=== PATIENT | female | born 1980 | race Caucasian/White ===

== ENCOUNTER → 2024-07-18 | Outpatient (CLI) | payer OTHER, SELFPAY ==
[2024-07-18 09:09] LABS: Collection Type, Urine Clean Catch; Squamous Epithelial Cell,Urine 0 /hpf (0-5)
[2024-07-18 11:40] LABS: Basophils % (Auto) 0 % (0-2.5); Eosinophils # (Auto) 0.1 Thou/mm3 (0.0-0.5); Eosinophils % (Auto) 2 % (0-10); Hematocrit 39.8 % (36.0-46.0); Hemoglobin 13.7 g/dL (12.0-16.0); Immature Granulocytes % (Auto) 0 % (0-0); Immature Granulocytes Auto 0.01 Thou/mm3 (0.00-0.00); Lymphocytes # (Auto) 3.1 Thou/mm3 (1.0-4.8); Lymphocytes % (Auto) 40 % (10-50); Mean Corpuscular HGB Conc 34.4 g/dl (31.0-37.0); Mean Corpuscular Hemoglobin 27.5 pg (25.0-35.0); Mean Corpuscular Volume 80 fL (80-100); Monocytes # (Auto) 0.5 Thou/mm3 (0.0-0.8); Monocytes % (Auto) 6 % (0-12); Neutrophils # (Auto) 3.9 Thou/mm3 (1.8-7.7); Neutrophils % (Auto) 51 % (37-80); Nucleated Red Blood Cell % 0 /100 WBC (0); Platelet Count 389 Thou/mm3 (140-440); RDW Standard Deviation 37.2 fL (36.4-46.3); Red Blood Count 4.99 Miln/mm3 (4.00-5.20); White Blood Count 7.7 Thou/mm3 (3.6-11.0)
[2024-07-18 11:46] LABS: Bilirubin,Urine Negative (Negative); Blood,Urine Negative (Negative); Clarity,Urine Clear (Clear/Hazy); Color,Urine Colorless (Lt Yel-Yel); Culture Indicated,Urine Not Indicated; Glucose, Urine Negative (Negative); Ketones,Urine Negative (Negative); Leukocyte Esterase,Urine Negative (Negative); Nitrite,Urine Negative (Negative); Protein,Urine Negative (Neg - Trace); RBC,Urine 1 /hpf (0-3); Urobilinogen,Urine Negative mg/dL (0.0-1.0); WBC,Urine < 1 /hpf (0-5)
[2024-07-18 11:59] LABS: Vitamin B12 384 pg/mL (211-911); Vitamin D 25 Hydroxy Total 20.6 ng/mL (7.3-40.2)
[2024-07-18 12:09] LABS: Alanine Aminotransferase 18 U/L (10-49); Albumin, Serum 5.1 gm/dL (3.5-5.0); Alkaline Phosphatase 85 U/L (46-116); Anion Gap 8 (7-16); Aspartate Amino Transferase 24 U/L (0-34); BUN/Creatinine Ratio 21 Ratio (12-20); Blood Urea Nitrogen 15 mg/dL (9-23); Calcium 9.9 mg/dL (8.3-10.6); Calcium (Corrected) 9.9 mg/dL (8.5-10.1); Carbon Dioxide 26.3 mMol/L (20.0-31.0); Chloride 108 mMol/L (98-107); Creatinine (Component) 0.7 mg/dL (0.6-1.3); Globulin 2.5 gm/dL (2.3-3.5); Glucose 98 mg/dL (74-106); Osmolality,Calculated 283 (275-295); Potassium 4.4 mMol/L (3.4-5.1); Sodium 142 mMol/L (136-145); Thyroid Stimulating Hormone 1.67 uIU/mL (0.55-4.78); Total Protein 7.6 gm/dL (5.7-8.2); eGFR > 60 See Note
[2024-07-18 12:23] LABS: Cardiac Risk Estimate 3.7 RATIO (3.7-5.6); Cholesterol 179 mg/dL (132-200); HDL Cholesterol 49 mg/dL (40-60); LDL Cholesterol,Calculated 103 mg/dL (0-130); Triglycerides 137 mg/dL (30-150)
== END | disposition home or self-care (01) ==
LOC: SLAB 08:59
PROVIDERS: PCP Physician Assistant; Referring Provider Physician Assistant; Visit Provider Physician Assistant
DX: Z00.00 Encounter for general adult medical examination without abnormal findings (principal); E78.5 Hyperlipidemia, unspecified; E55.9 Vitamin D deficiency, unspecified
CPT/HCPCS: 36415; 80053; 80061; 81001; 82306; 82607; 84443; 85025

== ENCOUNTER → 2025-01-29 | Outpatient (CLI) | payer OTHER, SELFPAY ==
--- NOTE | 2025-01-29 15:28 | XR_ITS ---
EXAMINATION: Ankle, left 3 views . Technique: Ankle AP, oblique, lateral 3 views Date and time of exam: January 29, 2011 2025, 1558 hours FINDINGS: No fracture or dislocation No foreign body IMPRESSION: No fracture or dislocation 5 mm plantar bony calcaneal spur
== END | disposition home or self-care (01) ==
PROVIDERS: PCP Physician Assistant; Referring Provider Physician Assistant; Visit Provider Physician Assistant
DX: M77.32 Calcaneal spur, left foot (principal)
CPT/HCPCS: 73610

== ENCOUNTER 2025-02-18 13:35 | Inpatient (IN) | payer OTHER, SELFPAY ==
[2025-02-18 13:45] VITALS: BP 122/80; PULSE 88; RESP 22; TEMP 36.7; O2SAT 98; BMI 28.7
--- NOTE | 2025-02-18 13:49 | XR_ITS ---
Examination: CT abdomen and pelvis without contrast. Coronal 3-D reconstructions. Sagittal 2-D reconstructions. Date and time of exam:February 18, 2025, 1526 hours INDICATIONS: Nausea vomiting generalized abdominal pain today CTDI: vol (mGy): 9.22 DLP: (mGycm): 534 Technique: Axial images of the abdomen have been obtained, 3 mm slice thickness Intravenous contrast material has not been administered. Low dose protocols were performed. One or more of the following dose reduction techniques were used; automated exposure control, adjustment of the mA and/or KV according to patient size, use of iterative reconstruction technique. Findings: 4 mm lateral right breast lesion image 13 Multiple hepatic lesions, the largest is in the left lobe anteriorly 5.2 cm, the largest in the right lobe of the liver 3.0 cm No biliary tract dilatation No gallstones No pancreatic or adrenal mass Spleen is not enlarged Multiple fluid distended small bowel loops Normal appendix 8mm fat-containing umbilical hernia Anteverted uterus Urinary bladder intact Mild osteopenia IMPRESSION: 4 mm nodule lateral right breast, recommend diagnostic mammography, bilateral breast sonography follow-up Multiple hepatic lesions, consider multiple hepatic metastases Small bowel obstruction, high-grade, consider Gastrografin small bowel series follow-up
--- NOTE | 2025-02-18 13:50 | PD.EDRME ---
Rapid Medical Screening Exam RME Arrival date/time: 02/18/25 13:35 44-year-old female with no known medical history presents to the emergency room with a chief complaint of 10 out of 10 diffuse abdominal pain that radiates from the epigastric area down to the lower abdomen, and vomiting x 2 days I have greeted and performed a focused initial assessment of this patient. A comprehensive ED assessment and evaluation of the patient, analysis of all test results, and completion of the medical decision making process will be conducted by additional ED providers. Chief Complaint: Abdominal Pain Vital signs: Vital Signs Temperature 98.1 F 02/18/25 13:45 Pulse Rate 88 02/18/25 13:45 Respiratory Rate 22 H 02/18/25 13:45 Blood Pressure 122/80 02/18/25 13:45 Pulse Oximetry (%) 98 02/18/25 13:45 Oxygen Delivery Method Room Air 02/18/25 13:45 Vital signs reviewed by provider: Yes
[2025-02-18 14:17] LABS: Basophils # (Auto) 0.0 Thou/mm3 (0.0-0.2); Basophils % (Auto) 0 % (0-2.5); Eosinophils # (Auto) 0.0 Thou/mm3 (0.0-0.5); Eosinophils % (Auto) 0 % (0-10); Hematocrit 42.8 % (36.0-46.0); Hemoglobin 14.3 g/dL (12.0-16.0); Immature Granulocytes Auto 0.06 Thou/mm3 (0.00-0.00); Lymphocytes # (Auto) 1.2 Thou/mm3 (1.0-4.8); Lymphocytes % (Auto) 8 % (10-50); Mean Corpuscular HGB Conc 33.4 g/dl (31.0-37.0); Mean Corpuscular Hemoglobin 26.9 pg (25.0-35.0); Mean Corpuscular Volume 81 fL (80-100); Monocytes # (Auto) 0.6 Thou/mm3 (0.0-0.8); Monocytes % (Auto) 4 % (0-12); Neutrophils # (Auto) 13.2 Thou/mm3 (1.8-7.7); Neutrophils % (Auto) 88 % (37-80); Nucleated Red Blood Cell # 0.00 Thou/mm3 (0.00-0.00); Nucleated Red Blood Cell % 0 /100 WBC (0); Platelet Count 379 Thou/mm3 (140-440); RDW Standard Deviation 35.8 fL (36.4-46.3); Red Blood Count 5.31 Miln/mm3 (4.00-5.20); White Blood Count 15.1 Thou/mm3 (3.6-11.0)
[2025-02-18 14:32] LABS: Collection Type, Urine Clean Catch
[2025-02-18 14:35] LABS: Alanine Aminotransferase 20 U/L (10-49); Albumin, Serum 5.2 gm/dL (3.5-5.0); Albumin/Globulin Ratio 2.1 (1.2-2.2); Alkaline Phosphatase 89 U/L (46-116); Anion Gap 12 (7-16); Aspartate Amino Transferase 22 U/L (0-34); BUN/Creatinine Ratio 14 Ratio (12-20); Bilirubin,Total 1.2 mg/dL (0.3-1.2); Blood Urea Nitrogen 10 mg/dL (9-23); Calcium 10.4 mg/dL (8.3-10.6); Calcium (Corrected) 10.4 mg/dL (8.5-10.1); Carbon Dioxide 22.6 mMol/L (20.0-31.0); Chloride 105 mMol/L (98-107); Creatinine (Component) 0.7 mg/dL (0.6-1.3); Estimated Creatinine Clearance 108.7 mL/min (>60); Globulin 2.5 gm/dL (2.3-3.5); Glucose 155 mg/dL (74-106); Lipase 29 U/L (12-53); Osmolality,Calculated 281 (275-295); Potassium 4.4 mMol/L (3.4-5.1); Sodium 140 mMol/L (136-145); Total Protein 7.7 gm/dL (5.7-8.2); eGFR > 60 See Note
[2025-02-18] MEDS: ONDANSETRON INJ 2 MG/ML INJ 2 ML 4 MG IM (14:38)
[2025-02-18 14:50] LABS: HCG Qualitative,Urine Negative
[2025-02-18 15:02] LABS: Bacteria,Urine Rare; Bilirubin,Urine Negative (Negative); Blood,Urine 2+ (Negative); Color,Urine Yellow (Lt Yel-Yel); Glucose, Urine Negative (Negative); Ketones,Urine 4+ (Negative); Leukocyte Esterase,Urine Negative (Negative); Nitrite,Urine Negative (Negative); PH,Urine 5.5 (5.0-7.0); Protein,Urine Trace (Neg - Trace); RBC,Urine 2 /hpf (0-3); Specific Gravity,Urine 1.027 (1.001-1.035); Squamous Epithelial Cell,Urine 6 /hpf (0-5); Urobilinogen,Urine Negative mg/dL (0.0-1.0); WBC,Urine 1 /hpf (0-5)
[2025-02-18 15:11] LABS: Clarity,Urine Hazy (Clear/Hazy)
[2025-02-18] MEDS: HYDROcodone/APAP 5/325 TABLET 1 TAB PO (15:30)
--- NOTE | 2025-02-18 16:48 | PD.EDABDPN ---
ED Abdominal Pain RME/HPI General Chief Complaint: Abdominal Pain Stated complaint: ABD PAIN, VOMITING SINCE 3:30AM Time seen by provider: 02/18/25 15:20 Arrival date/time: 02/18/25 13:35 RME / HPI RME / HPI narrative: 02/18/25 13:35 44-year-old female with no known medical history presents to the emergency room with a chief complaint of 10 out of 10 diffuse abdominal pain that radiates from the epigastric area down to the lower abdomen, and vomiting x 2 days I have greeted and performed a focused initial assessment of this patient. A comprehensive ED assessment and evaluation of the patient, analysis of all test results, and completion of the medical decision making process will be conducted by additional ED providers. DR. YU MAIN ED EVALUATION 44 year old female with no stated medical history presents to the ED with abdominal pain that began at 03:30 AM today. She describes the pain as spasms or contractions, localized to the epigastric and central abdomen. Pain is accompanied by nausea and multiple episodes of vomiting. She has taken simethicone without relief. Patient reports some belching earlier today and notes she has not passed any gas. She denies any prior history of similar pain or presentation. Denies fevers, chills, chest pain, cough, shortness of breath, diarrhea, or urinary symptoms. Related Data Allergies Allergy/AdvReac Type Severity Reaction Status Date / Time No Known Allergies Allergy Unknown Verified 02/18/25 13:38 Review of Systems Review of Systems Systems Reviewed: All systems reviewed, normal except as documented Past Medical History Surgical History SURGICAL: Positive Section Social History SMOKING STATUS: Never smoker ED Exam Narrative Physical exam: Constitutional: Awake, alert, nontoxic, no acute distress HEENT: NC, AT, EOMI Neck: Supple CV: RRR, no m/r/g Lungs: CTAB, no w/r/r, no respiratory distress. Abd: Soft, tenderness to mid abdomen, no rebound, no guarding, no HSM noted to palpation Extremities: No deformities, no edema noted Neuro: AAOx3, CN 2-12 GIBL, no acute neuro deficit noted. Skin: Warm, dry, intact Course Course Course Narrative: 1700h: Spoke with Dr. Ortez regarding patient's presentation and CT findings. Recommends NG tube placement and small bowel series with admission. Spoke with team B resident for admission. Accepted Quality Measures none Orders Category Date Time Status COVID-19 Screening Questionnaire NOW Care 02/18/25 17:02 Active Decision to Admit X1 Care 02/18/25 17:02 Completed Insert NG / OG tube NOW Care 02/18/25 17:[address] abdomen pelvis wo con Stat Exams 02/18/25 13:49 Completed CBC Stat Lab 02/18/25 13:57 Completed CMP [Comprehensive Metabolic Panel] Stat Lab 02/18/25 13:57 Completed HCG Qualitative,Urine Stat Lab 02/18/25 14:24 Completed Lipase Stat Lab 02/18/25 13:57 Completed UA [Urinalysis] Stat Lab 02/18/25 14:24 Completed Urine Culture Stat Lab 02/18/25 14:24 Received HYDROcodone*/APAP 5/325 [[place] 5/325] Med 02/18/25 13:49 Discontinued 1 tab PO X1 ONE Ondansetron Inj [Zofran Inj] Med 02/18/25 14:25 Discontinued 4 mg IM X1 ONE Ondansetron Odt [Zofran Odt] Med 02/18/25 13:51 Discontinued 4 mg PO X1 ONE Vital Signs Vital signs: Vital Signs Temperature 98.1 F 02/18/25 13:45 Pulse Rate 88 02/18/25 13:45 Respiratory Rate 22 H 02/18/25 13:45 Blood Pressure 122/80 02/18/25 13:45 Pulse Oximetry (%) 98 02/18/25 13:45 Oxygen Delivery Method Room Air 02/18/25 13:45 Pulse ox is 98% on room air which is adequate. Abdominal Pain MDM MDM Narrative MDM Narrative:: Genesis Selby am scribing for and in the presence of Dr. Yu. Patient data External records reviewed:: [facility] previous records Clinical information provided by:: patient Social determinants that could affect healthcare access:: none Patient has the following chronic illnesses:: None reported How is presenting disease/condition affected by chronic disease/condition?: no chronic disease Evaluation data The following diagnostics were reviewed and interpreted by me:: lab results and radiology exam(s) Lab and/or radiology exams considered but not ordered:: None Interpretation Summary: Ordering Physician: Tejas Salvador Date of Service: 02/18/25 Procedure(s): CT abdomen pelvis wo con Accession Number(s): [id number] cc: Tejas SalvadorP; Beni Enrique MD; Alexandra Burton PA-C~ Examination: CT abdomen and pelvis without contrast. Coronal 3-D reconstructions. Sagittal 2-D reconstructions. Date and time of exam:February 18, 2025, 1526 hours INDICATIONS: Nausea vomiting generalized abdominal pain today CTDI: vol (mGy): 9.22 DLP: (mGycm): 534 Technique: Axial images of the abdomen have been obtained, 3 mm slice thickness Intravenous contrast material has not been administered. Low dose protocols were performed. One or more of the following dose reduction techniques were used; automated exposure control, adjustment of the mA and/or KV according to patient size, use of iterative reconstruction technique. Findings: 4 mm lateral right breast lesion image 13 Multiple hepatic lesions, the largest is in the left lobe anteriorly 5.2 cm, the largest in the right lobe of the liver 3.0 cm No biliary tract dilatation No gallstones No pancreatic or adrenal mass Spleen is not enlarged Multiple fluid distended small bowel loops Normal appendix 8mm fat-containing umbilical hernia Anteverted uterus Urinary bladder intact Mild osteopenia IMPRESSION: 4 mm nodule lateral right breast, recommend diagnostic mammography, bilateral breast sonography follow-up Multiple hepatic lesions, consider multiple hepatic metastases Small bowel obstruction, high-grade, consider Gastrografin small bowel series follow-up Dictated By: Beni Enrique MD Signed By: <Electronically signed by Beni Enrique MD in OV> 02/18/25 1546 Medications / Prescriptions Medications or Prescriptions considered but not ordered:: None Medication administrations:: Medication Administration History Discontinued Medications Hydrocodone Bitart/Acetaminophen (Hydrocodone/Apap 5/325 Tablet) 1 tab PO X1 ONE Stop: 02/18/25 13:50 Last Admin: 02/18/25 15:30 Dose: 1 tab Documented By: KURTIS Ondansetron HCl (Ondansetron Odt 4 Mg Tabrap) 4 mg PO X1 ONE; Protocol Stop: 02/18/25 13:52 Last Admin: 02/18/25 16:10 Dose: Not Given Documented By: Non-Admin Reason: Cancelled by Provider Ondansetron HCl (Ondansetron Inj 2 Mg/Ml Inj 2 Ml) 4 mg IM X1 ONE; Protocol Stop: 02/18/25 14:26 Last Admin: 02/18/25 14:38 Dose: 4 mg Documented By: See above Consultations Consultation(s) initiated? (list below): Yes Consultation #1 (Physician, Specialty, Details): See course Diagnosis Differential diagnosis abdominal pain: abdominal pain, diverticulitis, gastroenteritis and small bowel obstruction Most likely diagnosis given after review of the tests above:: SBO Breast nodule Liver lesion Admission Indicated Admission indicated?: indicated Admission Request Was there a request for admission?: Yes Admission Attestation Admission request attestation: Discussed case with [] from Hospitalist service regarding admission. Discussed patients ED course, exam findings, labs, and radiology results. The Hospitalist [agrees,declines] to accept the patient for admission. Disposition Plan Disposition Plan: Admit Discharge Plan Plan Patient Disposition: Admit Acute Care w/in Hospital Prescriptions/Referrals Referrals: Alexandra Burton PA-C [Primary Care Provider] - In 1 week Problem List Clinical Impression: SBO (small bowel obstruction), Breast nodule, Lesion of liver Patient/Caregiver Discharge Instructions Print Language: Kinyarwanda Stand Alone Forms: Evette Award Info., Patient Portal Info Letter
[2025-02-18 17:00] VITALS: BP 128/80; PULSE 90; RESP 18; TEMP 36.9; O2SAT 99
--- NOTE | 2025-02-18 17:54 | XR_ITS ---
Examination: AP chest single view Technique one AP portable upright chest single view Date and time: February 18, 2025, 1820 hrs. Indications: Post orogastric tube placement Findings: No significant cardiac enlargement No pneumonia or pulmonary edema Orogastric tube coiled in stomach satisfactory position Impression: Orogastric tube coiled in the stomach satisfactory position
[2025-02-18] MEDS: MIDAZOLAM INJ 1 MG/ML VIAL 2 ML IVP (18:10)
[2025-02-18] MEDS: RINGERS LACTATED 1000 ML 1,000 ML 75 ML IV ×2 (18:38→21:16)
--- NOTE | 2025-02-18 19:20 | XR_ITS ---
Examination: Small bowel series AP abdomen 4 views Date and time: February 18, 2025, 2038 hrs. Indications: Abdominal pain and distention this week, small bowel obstruction on CT abdomen pelvis study today Technique And Findings: Patient received 120 cc Gastrografin with immediate 30 minute 1 2.5 hour delayed films obtained There are contrast distended small bowel loops, however contrast is present significantly in the entire colon on the 2.5 are delayed film Impression: Negative for complete small bowel obstruction, recommend 1 additional abdomen film at 6:00 AM
--- NOTE | 2025-02-18 19:20 | PD.RESHP ---
Documentation for date of: 02/18/25 HPI History of Present Illness Chief complaint: vomitings and abdominal pain History of present illness: A 44-year-old female with significant past medical history of endometriosis, breast cyst presented to the hospital with chief complaints of nausea, vomitings and abdominal pain since this morning. Patient reported that she woke up at 3 AM and started to have vomiting since then and continuously threw up. Denies hematemesis. Also reported that she developed abdominal pain which got worsened by evening for which she came to the ED for further evaluation. Reported that last bowel movement is yesterday. Denies previous history of constipation or similar complaints. Denies any other drug usage. ED course: - Vitals at the time of admission are stable - Labs done at the time of admission are significant for WBC 15.1, corrected calcium 10.4 - Urinalysis significant for ketones 4+, blood 2+, squamous epithelial cells 6 - CT abdomen/pelvis showed high-grade small bowel obstruction, multiple hepatic lesions with possible suspected hepatic metastasis, 4 mm nodule in the right lateral breast. - Patient is admitted in the hospital for small bowel obstruction Past medical history: Endometriosis, breast cyst diagnosed in May 2024 Past surgical history: 2 sections Social history: Denies smoking, alcohol, other illicit drug abuse Allergies: No specific allergen noted but uses Claritin as needed for allergy symptoms Review of Systems Review of Systems Systems Reviewed: All systems reviewed, normal except as documented Past Medical History Surgical History SURGICAL: Positive Section Social History SMOKING STATUS: Never smoker Exam Vital Signs Temp Pulse Resp BP Pulse Ox O2 Del Method 98.4 F 90 18 128/80 99 Room Air 02/18/25 17:02/18/25 17:02/18/25 17:02/18/25 17:02/18/25 17:02/18/25 17:00 Narrative Exam General: Awake. HEENT: Normocephalic, atraumatic, mucous membranes moist. Heart: Regular rate and rhythm, no murmurs. Lungs: Clear to auscultation with no wheezing or crackles. Abdomen: Soft, mildly distended, mild tenderness, decreased bowel sounds. ?No guarding or rebound tenderness. Neurologic: Alert and oriented x3, no gross neurological deficit, and patient able to move all 4 extremities. Extremities: No edema. Skin: No rash or ecchymoses. Results: Labs 02/18/25 13:57 02/18/25 13:57 Labs: Short CBC 02/18/25 Range/Units 13:57 WBC 15.1 H (3.6-11.0) Thou/mm3 Hgb 14.3 (12.0-16.0) g/dL Hct 42.8 (36.0-46.0) % Plt Count 379 (140-440) Thou/mm3 BMP 02/18/25 13:57 Sodium 140 Potassium 4.4 Chloride 105 Carbon Dioxide 22.6 BUN 10 Creatinine 0.7 Glucose 155 H Calcium 10.4 Liver Function 02/18/25 Range/Units 13:57 Total Bilirubin 1.2 (0.3-1.2) mg/dL AST 22 (0-34) U/L ALT 20 (10-49) U/L Alkaline Phosphatase 89 (46-116) U/L Albumin 5.2 H (3.5-5.0) gm/dL Urine 02/18/25 Range/Units 14:24 Urine Color Yellow (Lt Yel-Yel) Urine Clarity Hazy (Clear/Hazy) Urine pH 5.5 (5.0-7.0) Ur Specific [place] 1.027 (1.001-1.035) Urine Protein Trace (Neg - Trace) Urine Glucose (UA) Negative (Negative) Quality Measures Quality Measures none Medications Home Medications and Allergies Allergies Allergy/AdvReac Type Severity Reaction Status Date / Time No Known Allergies Allergy Unknown Verified 02/18/25 13:38 Visit Medications Lactated Ringer's (Lactated Ringers) 1,000 mls @ 75 mls/hr IV .[id number] [facility] Stop: 03/20/25 18:44 Last Admin: 02/18/25 18:38 Dose: 75 mls/hr Ondansetron HCl (Ondansetron Inj 2 Mg/Ml Inj 2 Ml) 4 mg IVP Q6H PRN; Protocol PRN Reason: NAUSEA OR VOMITING Stop: 03/20/25 18:31 Pantoprazole Sodium (Pantoprazole Inj 40 Mg Vial) 40 mg IVP QDAY [facility] Stop: 03/21/25 08:59 Discontinued Medications Hydrocodone Bitart/Acetaminophen (Hydrocodone/Apap 5/325 Tablet) 1 tab PO X1 ONE Stop: 02/18/25 13:50 Last Admin: 02/18/25 15:30 Dose: 1 tab Midazolam HCl (Midazolam Inj 1 Mg/Ml Vial 2 Ml) 1 mg IVP X1 ONE Stop: 02/18/25 17:58 Last Admin: 02/18/25 18:10 Dose: 1 mg Ondansetron HCl (Ondansetron Odt 4 Mg Tabrap) 4 mg PO X1 ONE; Protocol Stop: 02/18/25 13:52 Last Admin: 02/18/25 16:10 Dose: Not Given Ondansetron HCl (Ondansetron Inj 2 Mg/Ml Inj 2 Ml) 4 mg IM X1 ONE; Protocol Stop: 02/18/25 14:26 Last Admin: 02/18/25 14:38 Dose: 4 mg Assessment & Plan Plan 44-year-old female with significant past medical history of endometriosis, right breast cyst admitted for small bowel obstruction # Small bowel obstruction - Admitted with chief complaints of nausea, vomiting and abdominal pain since the morning of the day of admission - Had multiple episodes of vomiting but denies hematemesis - Denies fever, other associated symptoms - Vitals are stable - Labs are significant for WBC 15.1 - Abdomen/pelvis CT showed high-grade small bowel obstruction and multiple liver masses Plan - Consulted general surgeon, Dr. Ortez - NG tube was placed - Small bowel series was started - Will monitor for bowel movements - Started on maintenance fluids, LR at 75 mL/h - Ondansetron as needed # Leukocytosis - WBC count at the time of presentation is 15.1, likely reactive Plan - Will continue to monitor CBC - Will start antibiotics if needed # Multiple liver masses, incidental finding - Patient does not have hematemesis, melena, hematochezia - Denies any weight loss - Abdomen/pelvis CT done which showed incidental multiple liver masses suggestive of possible liver metastasis - Father had sarcoma and is on chemotherapy, alive, age 65 years Plan - Consulted smoking pipes cleaner, Dr. Damico - Will need biopsy/MRI with contrast to evaluate the liver lesions, will wait for Dr. Damico recommendations and proceed according to that # Breast nodule - Incidental finding - Patient reported that she had a mammogram in May 2024 and noted to have cyst in the right breast - Will recommend to follow-up with regular mammography Hospital Maintenance: Dispo: Medsurg DVT ppx: SCD GI ppx: Protonix Diet: NPO IV lines: Peripheral Code status: Full Patient plan of care was discussed with the attending physician, Dr. Ashtyn Saleh, PGY2
[2025-02-18 19:28] VITALS: BP 128/84; PULSE 83; RESP 17; O2SAT 98
[2025-02-18 19:39] VITALS: BP 121/96; PULSE 94; RESP 18; TEMP 37.4; O2SAT 97
--- NOTE | 2025-02-18 19:44 | PD.SURCONS ---
HPI Consult details Consult date: 02/18/25 Reason for consultation narrative: Small bowel obstruction History of present illness: 44-year-old female with history of and endometriosis presented to the emergency department with worsening abdominal pain, nausea and vomiting. Her symptoms started 3:00 in the morning and woke her up. She has had generalized abdominal pain with bloating, and had multiple episodes of nausea and vomiting. She denies having similar symptoms in the past with recent history of trauma. CT scan of abdomen pelvis was done without contrast that revealed dilated loops of small bowel suspicious for high-grade small bowel obstruction. CT scan also revealed possible multiple liver lesions, however the CT scan was done without the contrast. She was also noted to have a right breast nodule, patient states she has had mammogram earlier this year that revealed right breast cyst. She denies history of breast mass, nipple discharge or family history of breast cancer. Review of Systems Constitutional Constitutional: Denies chills and Denies fever(s) Cardiovascular Cardiovascular: Denies chest pain Respiratory Respiratory: Denies cough Gastrointestinal Gastrointestinal: Reports abdominal pain, Reports nausea and Reports vomiting Genitourinary Genitourinary: Denies difficulty voiding and Denies nipple discharge Integumentary/Breasts Skin/Breast: Denies breast mass, Denies breast skin changes and Denies nipple discharge Hematologic/Lymphatic Hematologic/Lymphatic: Denies easy bleeding and Denies easy bruising Past Medical History Surgical History OTHER SURGICAL HX: Social History SMOKING STATUS: Never smoker SUBSTANCE USE: does not use ALCOHOL: Never Meds Home Medications and Allergies Allergies Allergy/AdvReac Type Severity Reaction Status Date / Time No Known Allergies Allergy Unknown Verified 02/18/25 13:38 Exam Vital Signs Temp Pulse Resp BP Pulse Ox O2 Del Method 99.3 F 94 18 121/96 H 97 Room Air 02/18/25 19:39 02/18/25 19:39 02/18/25 19:39 02/18/25 19:39 02/18/25 19:39 02/18/25 19:39 Constitutional Constitutional: no acute distress Routine Abdominal Exam Comments: Abdomen is soft but distended. She has tenderness to deep palpation, no rebound tenderness or diffuse peritonitis at this time Results Results: Laboratory Laboratory results: results reviewed Results: Imaging CT scan - abdomen: report reviewed and image reviewed CT scan - pelvis: report reviewed and image reviewed Assessment & Plan Problem List (1) SBO (small bowel obstruction): Status: Acute (2) Breast nodule: Status: Acute Plan Agree with NG tube decompression. Will obtain small bowel series. Regarding her liver lesions she she will either need a CT scan with IV contrast or MRI for further evaluation. Breast nodule is likely the cyst that she had on mammogram, that can be managed as an outpatient.
[2025-02-18 19:46] LABS: Creatine Kinase 90 U/L (34-171)
[2025-02-18 20:20] LABS: Lactate (Lactic Acid) 1.3 mMol/L (0.4-2.0)
[2025-02-18 20:37] VITALS: BMI 28.8
[2025-02-18] MEDS: MORPHINE SULF INJ 4 MG/ML VIAL 2 MG IVP (21:16)
[2025-02-18] MEDS: ONDANSETRON INJ 2 MG/ML INJ 2 ML 4 MG IVP (21:16)
--- NOTE | 2025-02-18 22:08 | PD.IMCONS ---
HPI Data of Consult Requesting Physician: Niarj Chamorro DO Primary Care Provider: Alexandra Burton PA-C Consult Narrative Reason for consult: Pain abdomen, nausea vomiting, abnormal CTAP History of present illness: 44 years of female presented to the hospital with severe abdominal pain starting in the epigastric area down to the lower abdomen with multiple episodes of nausea vomiting CT scan of the abdomen pelvis done without contrast showed 4 mm right breast lesion which on earlier mammography this year was found to be a cyst High-grade small bowel obstruction as well as multiple hepatic lesions I have been consulted cc:: cc: Niraj Chamorro DO Review of Systems Review of Systems Systems Reviewed: All systems reviewed, normal except as documented Past Medical History Surgical History OTHER SURGICAL HX: As in the history present illness Meds Home Medications and Allergies Home Medications ?Medication ?Instructions ?Recorded ?Confirmed ?Type No Known Home Medications 02/18/25 02/18/25 History Allergies Allergy/AdvReac Type Severity Reaction Status Date / Time No Known Allergies Allergy Unknown Verified 02/18/25 13:38 Exam Vital Signs Temp Pulse Resp BP Pulse Ox O2 Del Method 99.3 F 94 18 121/96 H 97 Room Air 02/18/25 19:39 02/18/25 19:39 02/18/25 19:39 02/18/25 19:39 02/18/25 19:39 02/18/25 19:39 Constitutional Comments: Chronically ill-appearing and in distress Routine Respiratory Exam Comments: Normal to auscultation Routine Abdominal Exam Comments: Hypoactive bowel sounds distended Results Labs 02/18/25 13:57 02/18/25 13:57 Labs: Short CBC 02/18/25 Range/Units 13:57 WBC 15.1 H (3.6-11.0) Thou/mm3 Hgb 14.3 (12.0-16.0) g/dL Hct 42.8 (36.0-46.0) % Plt Count 379 (140-440) Thou/mm3 BMP 02/18/25 13:57 Sodium 140 Potassium 4.4 Chloride 105 Carbon Dioxide 22.6 BUN 10 Creatinine 0.7 Glucose 155 H Calcium 10.4 Cardiac Enzymes 02/18/25 Range/Units 13:57 Total Creatine Kinase 90 (34-171) U/L Liver Function 02/18/25 Range/Units 13:57 Total Bilirubin 1.2 (0.3-1.2) mg/dL AST 22 (0-34) U/L ALT 20 (10-49) U/L Alkaline Phosphatase 89 (46-116) U/L Albumin 5.2 H (3.5-5.0) gm/dL Urine 02/18/25 Range/Units 14:24 Urine Color Yellow (Lt Yel-Yel) Urine Clarity Hazy (Clear/Hazy) Urine pH 5.5 (5.0-7.0) Ur Specific [place] 1.027 (1.001-1.035) Urine Protein Trace (Neg - Trace) Urine Glucose (UA) Negative (Negative) Assessment and Plan Additional Assessment & Plan Additional Plan: # High-grade small bowel Plan NGT to intermittent suction Gastrografin small bowel follow-through Will follow the patient # Multiple hepatic lesions in the liver AFP CEA level CA 19?9 level CA125 level CA 15-3 level Once more stable Recommend MRI scan of the liver pre and postcontrast 4 phase # Right breast nodule versus cyst Recommend ultrasound right breast with a repeat right breast diagnostic mammogram Thank you very much for the opportunity to participate in care of this patient
[2025-02-18 22:51] LABS: AFP Non-Pregnant 1.80 ng/mL (<8.10); CA 125 10.0 U/mL (<30.2); CA 15-3 6.6 U/mL (<32.4); Carcinoembryonic Antigen 1.0 ng/mL (0.0-5.0)
[2025-02-19] VITALS: BP 120/79; PULSE 91; RESP 16; TEMP 36.3; O2SAT 98
[2025-02-19 04:00] VITALS: BP 118/85; PULSE 82; RESP 16; TEMP 36.9; O2SAT 98
[2025-02-19] MEDS: ONDANSETRON INJ 2 MG/ML INJ 2 ML 4 MG IVP (04:10)
[2025-02-19] MEDS: MORPHINE SULF INJ 4 MG/ML VIAL 2 MG IVP (04:29)
[2025-02-19 05:10] LABS: Basophils # (Auto) 0.0 Thou/mm3 (0.0-0.2); Basophils % (Auto) 0 % (0-2.5); Eosinophils # (Auto) 0.0 Thou/mm3 (0.0-0.5); Eosinophils % (Auto) 0 % (0-10); Hematocrit 37.1 % (36.0-46.0); Hemoglobin 12.4 g/dL (12.0-16.0); Immature Granulocytes Auto 0.03 Thou/mm3 (0.00-0.00); Lymphocytes # (Auto) 2.7 Thou/mm3 (1.0-4.8); Lymphocytes % (Auto) 29 % (10-50); Mean Corpuscular HGB Conc 33.4 g/dl (31.0-37.0); Mean Corpuscular Hemoglobin 27.0 pg (25.0-35.0); Mean Corpuscular Volume 81 fL (80-100); Monocytes # (Auto) 1.1 Thou/mm3 (0.0-0.8); Monocytes % (Auto) 12 % (0-12); Neutrophils # (Auto) 5.6 Thou/mm3 (1.8-7.7); Neutrophils % (Auto) 59 % (37-80); Nucleated Red Blood Cell # 0.00 Thou/mm3 (0.00-0.00); Nucleated Red Blood Cell % 0 /100 WBC (0); Platelet Count 358 Thou/mm3 (140-440); RDW Standard Deviation 37.0 fL (36.4-46.3); Red Blood Count 4.60 Miln/mm3 (4.00-5.20); White Blood Count 9.5 Thou/mm3 (3.6-11.0)
[2025-02-19 05:53] LABS: Glucose Estimated Average 103 mg/dL (80-131); Hemoglobin A1C 5.2 % Hgb (4.8-6.0)
--- NOTE | 2025-02-19 06:00 | XR_ITS ---
Examination: Abdomen AP single view Technique: AP portable supine abdomen, single view Exam date and time: February 19, 2025, 0547 hrs. Indications: Abdominal distention this week, 9 hour delayed film post small bowel series yesterday. Findings: Air distended small bowel, but contrast present throughout the entire colon Impression: Negative for complete small bowel obstruction
[2025-02-19 06:06] LABS: Alanine Aminotransferase 14 U/L (10-49); Albumin, Serum 4.3 gm/dL (3.5-5.0); Albumin/Globulin Ratio 2.2 (1.2-2.2); Alkaline Phosphatase 69 U/L (46-116); Anion Gap 11 (7-16); Aspartate Amino Transferase 16 U/L (0-34); BUN/Creatinine Ratio 19 Ratio (12-20); Bilirubin,Total 1.8 mg/dL (0.3-1.2); Blood Urea Nitrogen 13 mg/dL (9-23); Calcium 9.4 mg/dL (8.3-10.6); Calcium (Corrected) 9.4 mg/dL (8.5-10.1); Carbon Dioxide 26.7 mMol/L (20.0-31.0); Cardiac Risk Estimate 3.4 RATIO (3.7-5.6); Chloride 109 mMol/L (98-107); Cholesterol 167 mg/dL (132-200); Creatinine (Component) 0.7 mg/dL (0.6-1.3); Estimated Creatinine Clearance 108.8 mL/min (>60); Globulin 2.0 gm/dL (2.3-3.5); Glucose 124 mg/dL (74-106); HDL Cholesterol 49 mg/dL (40-60); LDL Cholesterol,Calculated 99 mg/dL (0-130); Magnesium 2.2 mg/dL (1.6-2.6); Osmolality,Calculated 293 (275-295); Phosphorous 3.1 mg/dL (2.4-5.1); Potassium 3.7 mMol/L (3.4-5.1); Sodium 147 mMol/L (136-145); Thyroid Stimulating Hormone 1.90 uIU/mL (0.55-4.78); Total Protein 6.3 gm/dL (5.7-8.2); Triglycerides 96 mg/dL (30-150); eGFR > 60 See Note
[2025-02-19 08:00] VITALS: BP 116/74; PULSE 86; RESP 16; TEMP 36.1; O2SAT 95
--- NOTE | 2025-02-19 08:15 | PD.SURPROG ---
Documentation for date of: 02/19/25 Subjective Subjective Narrative: Patient is seen and examined. Her pain is improving. She has had bowel movement. Small bowel series was negative for bowel obstruction Exam Vital Signs Temp Pulse Resp BP Pulse Ox O2 Del Method 97 F 86 16 116/74 95 Room Air 02/19/25 08:00 02/19/25 08:00 02/19/25 08:00 02/19/25 08:00 02/19/25 08:00 02/19/25 08:00 Constitutional Constitutional: no acute distress Routine Abdominal Exam Comments: Abdomen is soft and nondistended. Minimal tenderness to deep palpation, no rebound tenderness or peritonitis Assessment & Plan Assessment Additional comments: Small bowel obstruction resolving Plan DC NG tube and start patient on full liquids
--- NOTE | 2025-02-19 09:43 | PC.SS ---
Follow up note: Pt is on IV antibiotic.
[2025-02-19 12:00] VITALS: BP 116/71; PULSE 80; RESP 16; TEMP 36.4; O2SAT 98
--- NOTE | 2025-02-19 13:52 | ESDS_ITS ---
<Statement entered by Jason Chance MD - 02/28/25 08:16> I reviewed above note and agree with findings and plans. I have also personally examined the patient with medicine team and went over assessment and plan with medical team including kinesiology internship and resident physician. Planned Discharge Date 02/19/25 DS: Providers Provider Date of admission: 02/18/25 18:32 Primary care physician: Alexandra Burton PA-C Admitting Provider: Niraj Chamorro DO Attending Provider on Admission: Niraj Chamorro DO Consults: 02/18/25 18:40 Consult to Gastroenterology Routine Comment: multiple liver masses Consulting Provider: Maryann Damico 02/18/25 18:41 Consult to General Surgery Routine Comment: sbo Consulting Provider: Mary Ortez Attending Provider on DC: Asiya Mejia DO Discharging Provider: Asiya Mejia DO DS: Diagnosis Problem List Completed Was Problem List Reviewed/Reconciled?: Yes Hospital Course Hospital Course Hospital course: Summary: 44-year-old female with significant past medical history of endometriosis, breast cyst presented to the hospital on 02/18/2025 with chief complaints of nausea, vomitings and abdominal pain. CT abdomen/pelvis showed high-grade small bowel obstruction, but later ruled out with small bowel series. The patient started to have bowel movements and abdominal pain has diminished. ED course: - Vitals at the time of admission are stable - Labs done at the time of admission are significant for WBC 15.1, corrected calcium 10.4 - Urinalysis significant for ketones 4+, blood 2+, squamous epithelial cells 6 - CT abdomen/pelvis showed high-grade small bowel obstruction, multiple hepatic lesions with possible suspected hepatic metastasis, 4 mm nodule in the right lateral breast. - Patient is admitted in the hospital for small bowel obstruction Hospital Course: Upon admission on 02/18/2025, NG tube was placed, and the patient started on maintenance fluids of lactated Ringer at 75 mL/h and added on dextrose as needed. On the next day 02/19/2025. patient started to have bowel movement and her abdominal pain have subsided. Small bowel series indicated negative for small bowel obstruction. NG tube has been discontinued. CT abdomen pelvis also found multiple liver masses and GI recommended CT or MRI in outpatient setting. Patient also reported to have a breast nodule for the mammogram done on May 2024. There was 4 mm right breast nodule found on CT abdomen pelvis during this admission. Instructed patient to follow-up with PCP regarding the breast cyst management. Instructions: Please follow-up with Dr. Ortez outpatient within 2 weeks of discharge Follow-up with Dr. Damico (GI) regarding liver pathology Please follow-up with your PCP within 1 week of discharge - or follow-up at the [facility] [address] [place] [address] Ask your PCP to follow-up on R breast nodule with diagnostic mammogram Ask your PCP to follow-up on hepatic lesions seen incidentally If your symptoms worsen or if you develop new chest pain, shortness of breath, dizziness or bleeding - please come back to the ED immediately. Safe to discharge to Home # Small bowel obstruction # Leukocytosis # Multiple liver masses, incidental finding # Breast nodule Assessment and plan discussed with my attending physician Dr. Robson Mejia (PGY-1) - Internal medicine resident Time Spent with Patient Time attestation: Total time spent providing and/or coordinating discharge services: Time spent: Greater than 30 minutes Exam Vital Signs Temp Pulse Resp BP Pulse Ox O2 Del Method 97.5 F 80 16 116/71 98 Room Air 02/19/25 12:00 02/19/25 12:00 02/19/25 12:00 02/19/25 12:00 02/19/25 12:00 02/19/25 12:00 Discharge Plan Plan Patient Disposition: HOME (Self Care) Patient condition on transfer: Stable Care Plan Goals: Please follow-up with Dr. Neelima reina within 2 weeks of discharge Follow-up with Dr. Damico (GI) regarding liver pathology Please follow-up with your PCP within 1 week of discharge - or follow-up at the [facility] [address] [place] [address] Ask your PCP to follow-up on R breast nodule with diagnostic mammogram Ask your PCP to follow-up on hepatic lesions seen incidentally If your symptoms worsen or if you develop new chest pain, shortness of breath, dizziness or bleeding - please come back to the ED immediately. Prescriptions/Referrals Prescriptions/Med Rec: No Action No Known Home Medications Referrals: Mary Ortez MD [Physician, General Surgery] Maryann Damico MD [Physician, Gastroenterology] Alexandra Burton PA-C [Primary Care Provider] Patient/Caregiver Discharge Instructions Education Materials: Tests for Liver Disease, What Are Benign Breast Conditions?, ED Breast Lump, Uncertain Cause Print Language: Azeri Stand Alone Forms: Evette Award Info., Patient Portal Info Letter Discharge Order Discharge Orders: Discharge (Routine); Ordered 02/19/25 Ordered By: Gregg Rodriguez Quality Discharge Quality Measures VTE prophylaxis
--- NOTE | 2025-02-19 22:27 | ESPR_ITS ---
Documentation for date of: 02/19/25 Subjective Subjective Interval history: late entry for the note Small bowel follow-through negative for complete small bowel obstruction Patient had bowel movements NGT discontinued Case discussed with the internal medicine team Okay to discharge patient home Exam Vital Signs Temp Pulse Resp BP Pulse Ox O2 Del Method 97.5 F 80 16 116/71 98 Room Air 02/19/25 12:00 02/19/25 12:00 02/19/25 12:00 02/19/25 12:00 02/19/25 12:00 02/19/25 12:00 Objective Labs 02/19/25 04:46 02/19/25 04:46 Labs: Laboratory Results - last 24 hr 02/18/25 02/19/25 20:11 04:46 WBC 9.5 D RBC 4.60 Hgb 12.4 Hct 37.1 MCV 81 MCH 27.0 MCHC 33.4 RDW Std Deviation 37.0 Plt Count 358 Neut % (Auto) 59 Lymph % (Auto) 29 [place] % (Auto) 12 Eos % (Auto) 0 Baso % (Auto) 0 Neut # (Auto) 5.6 Lymph # (Auto) 2.7 [place] # (Auto) 1.1 H Eos # (Auto) 0.0 Baso # (Auto) 0.0 Immature Gran # (Auto) 0.03 H Absolute Nucleated RBC 0.00 Immature Gran % 0 Nucleated RBC % 0 Sodium 147 H Potassium 3.7 D Chloride 109 H Carbon Dioxide 26.7 Anion Gap 11 BUN 13 Creatinine 0.7 Estim Creat Clear Calc 108.8 eGFR > 60 BUN/Creatinine Ratio [address] Glu mg/dL 103 Hemoglobin A1c 5.2 Calculated Osmolality 293 Calcium 9.4 Corrected Calcium 9.4 Phosphorus 3.1 Magnesium 2.2 Total Bilirubin 1.8 H D AST 16 ALT 14 Alkaline Phosphatase 69 D Total Protein 6.3 Albumin 4.3 D Globulin 2.0 L Albumin/Globulin Ratio 2.2 Triglycerides 96 Cholesterol 167 LDL Cholesterol, Calc 99 HDL Cholesterol 49 Cholesterol/HDL Ratio 3.4 L Tumor Marker AFP 1.80 Carcinoembryonic Ag 1.0 CA 15-3 Antigen 6.6 CA 125 Antigen 10.0 TSH 1.90 Impressions Impression: Small bowel obstruction resolved Okay to discharge patient home if necessary outpatient follow-up Assessment & Plan A&P Narrative # High-grade small bowel Plan NGT to intermittent suction Gastrografin small bowel follow-through Will follow the patient # Multiple hepatic lesions in the liver AFP CEA level CA 19?9 level CA125 level CA 15-3 level Once more stable Recommend MRI scan of the liver pre and postcontrast 4 phase # Right breast nodule versus cyst Recommend ultrasound right breast with a repeat right breast diagnostic mammogram Thank you very much for the opportunity to participate in care of this patient Time Spent With Patient Time: Total time spent is greater than 50% in coordination of care (as documented) at patient's floor/unit and/or counseling patient:
[2025-02-25 06:26] LABS: CA 19-9 Antigen* 30 U/mL (<34)
== END 2025-02-19 12:04 | disposition home or self-care (01) | DRG 390 ==
LOC: SERX 17:49 → SERHOLD 19:28 → S3SX 20:23
PROVIDERS: Nurse Practitioner Family; Specialist; Admitting Provider Student in an Organized Health Care Education/Training Program; Emergency Provider Family Medicine; PCP Physician Assistant; Visit Provider Student in an Organized Health Care Education/Training Program
DX: K56.609 Unspecified intestinal obstruction, unspecified as to partial versus complete obstruction (principal); N60.01 Solitary cyst of right breast; D72.829 Elevated white blood cell count, unspecified; R16.0 Hepatomegaly, not elsewhere classified; Z98.891 History of uterine scar from previous surgery
CPT/HCPCS: 36415; 74018; 74176; 74250; 80053; 80061; 81001; 81025; 82105; 82378; 82550; 83036; 83605; 83690; 83735; 84100; 84443; 85025; 86300; 86301; 86304; 87086; 96361; 96374; 96375; 96376; 99285; A4649; J2250; J2270; J2405; J2470; J7120; Q9963; A9270

== ENCOUNTER → 2025-02-22 | Outpatient (CLI) | payer OTHER, SELFPAY ==
--- NOTE | 2025-02-22 13:45 | XR_ITS ---
Examination: MRI abdomen with intravenous contrast. MRI abdomen without intravenous contrast. Date and time of exam: June 25, 2024, 1347 hrs. Indications: Abdominal pain beginning 5 days ago, multiple hepatic lesions on CT abdomen pelvis 02/19/2024 Technique: Multiple axial, sagittal and coronal sections of the abdomen obtained. Transverse images, TR 6020, TE 107. T1 weighted transverse images, TR 582, TE 9.5. T2-weighted sagittal images, TR 4000, TE 105. T2-weighted sagittal images, TR 4000, TE 5. Coronal images, TR 4210, TE 107. Axial and coronal images are obtained post 20 cc intravenous injection, gadolinium. Findings: Precontrast images demonstrate numerous hepatic lesions These lesions show mild diffuse enhancement on the postcontrast images The largest lesion is in the left lobe of the liver 4.7 cm Largest lesion in the right lobe of the liver is 3.6 cm No intra or extra hepatic biliary tract dilatation No gallstones Spleen is not enlarged No pancreatic or adrenal mass. No hydronephrosis. Aorta normal size No ascites No common hepatic or common bile duct stones Impression: Numerous hepatic lesions as above, differential would include hepatic metastatic disease One of these lesions is amenable to CT-guided percutaneous biopsy for diagnosis
== END | disposition home or self-care (01) ==
PROVIDERS: PCP Physician Assistant; Referring Provider Physician Assistant; Visit Provider Physician Assistant
DX: K76.9 Liver disease, unspecified (principal)
CPT/HCPCS: 74183; A9577

== ENCOUNTER 2025-03-03 09:02 | Outpatient (CLI) | payer OTHER, SELFPAY ==
[2025-02-28 14:47] LABS: Basophils # (Auto) 0.0 Thou/mm3 (0.0-0.2); Basophils % (Auto) 0 % (0-2.5); Eosinophils # (Auto) 0.1 Thou/mm3 (0.0-0.5); Eosinophils % (Auto) 1 % (0-10); Hematocrit 36.6 % (36.0-46.0); Hemoglobin 12.2 g/dL (12.0-16.0); Immature Granulocytes Auto 0.01 Thou/mm3 (0.00-0.00); Lymphocytes # (Auto) 3.1 Thou/mm3 (1.0-4.8); Lymphocytes % (Auto) 41 % (10-50); Mean Corpuscular HGB Conc 33.3 g/dl (31.0-37.0); Mean Corpuscular Hemoglobin 27.3 pg (25.0-35.0); Mean Corpuscular Volume 82 fL (80-100); Monocytes # (Auto) 0.5 Thou/mm3 (0.0-0.8); Monocytes % (Auto) 7 % (0-12); Neutrophils # (Auto) 3.8 Thou/mm3 (1.8-7.7); Neutrophils % (Auto) 50 % (37-80); Nucleated Red Blood Cell # 0.00 Thou/mm3 (0.00-0.00); Nucleated Red Blood Cell % 0 /100 WBC (0); Platelet Count 332 Thou/mm3 (140-440); RDW Standard Deviation 36.8 fL (36.4-46.3); Red Blood Count 4.47 Miln/mm3 (4.00-5.20); White Blood Count 7.6 Thou/mm3 (3.6-11.0)
[2025-02-28 14:51] LABS: Anion Gap 10 (7-16); BUN/Creatinine Ratio 16 Ratio (12-20); Blood Urea Nitrogen 11 mg/dL (9-23); Calcium 9.3 mg/dL (8.3-10.6); Carbon Dioxide 25.8 mMol/L (20.0-31.0); Chloride 108 mMol/L (98-107); Creatinine (Component) 0.7 mg/dL (0.6-1.3); Glucose 108 mg/dL (74-106); Osmolality,Calculated 287 (275-295); Potassium 3.8 mMol/L (3.4-5.1); Sodium 144 mMol/L (136-145); eGFR > 60 See Note
[2025-02-28 15:09] LABS: HCG,Qualitative Serum Positive
[2025-02-28 16:04] VITALS: BMI 27.2
[2025-02-28 16:05] LABS: INR 1.0 (0.9-1.3); Partial Thromboplastin Time 26.1 Seconds (22.0-36.0); Prothrombin Time 10.9 Seconds (9.0-12.2)
[2025-03-03] VITALS (13 sets, daily range): BP systolic 103–121; BP diastolic 56–82; PULSE 50–70; RESP 12–19; TEMP 36.7–36.8; O2SAT 97–100
--- NOTE | 2025-03-03 10:00 | XR_ITS ---
EXAM: CT-guided liver biopsy DATE: 03/03/2025, 10:55 a.m. DLP: 1138 CTDI 113 COMPARISON: 02/18/2025 INDICATION: Multiple rim-enhancing masses FINDINGS: After discussion of risks and benefits informed consent was obtained. The patient was brought to the CT suite and placed prone on the exam table. Preliminary noncontrast CT of the abdomen again demonstrates multiple hypodense masses in the liver. Low-density mass in the anterior right hepatic lobe was targeted for biopsy. The overlying skin was cleaned and draped in normal sterile surgical fashion. 10 cc 1% lidocaine was used for local anesthesia. Conscious sedation was begun with direct continuous nursing supervision. Using CT guidance gauge an 18 g needle biopsy device was sequentially advanced into the targeted mass. Multiple core biopsy samples were obtained and passed to pathology who deemed the samples adequate at the time of the procedure. The needle was withdrawn. Hemostasis was achieved. The access site was covered with sterile dressing. Postbiopsy CT was performed. No evidence of hemorrhage or acute complication seen. Patient tolerated the procedure well and was returned to the holding area for post procedural observation. IMPRESSION: Successful right hepatic lobe biopsy as above.
[2025-03-03 10:19] LABS: Beta HCG,Quantitative 4 mIU/mL (<5.0)
[2025-03-03] MEDS: SODIUM CHLORIDE 0.9% 500 ML 500 ML 20 ML IV (10:52)
[2025-03-03] MEDS: fentaNYL CIT INJ 50 mCg/ML AMP 2ML 75 MCG IVP (11:04)
[2025-03-03] MEDS: MIDAZOLAM INJ 1 MG/ML VIAL 2 ML IVP (11:04)
[2025-03-03] MEDS: LIDOCAINE INJ PF 1% 30 ML VIAL 25 ML EPID (11:06)
== END 2025-03-03 12:45 | disposition home or self-care (01) ==
PROVIDERS: PCP Physician Assistant; Referring Provider Physician Assistant; Visit Provider Radiology Diagnostic Radiology
DX: C80.1 Malignant (primary) neoplasm, unspecified (principal); C78.7 Secondary malignant neoplasm of liver and intrahepatic bile duct
CPT/HCPCS: 47000; 36415; 77012; 80048; 84702; 84703; 85025; 85610; 85730; A4649; J2250; J3010; J3490; J7999

== ENCOUNTER → 2025-03-05 | Outpatient (CLI) | payer OTHER, SELFPAY ==
[2025-03-05 15:07] LABS: Misc Send Out* See Sep Rpt
== END | disposition home or self-care (01) ==
PROVIDERS: Referring Provider Internal Medicine Hematology & Oncology; Visit Provider Internal Medicine Hematology & Oncology
DX: C7B.02 Secondary carcinoid tumors of liver (principal)
CPT/HCPCS: 86316

== ENCOUNTER → 2025-03-19 | Outpatient (CLI) | payer OTHER, SELFPAY ==
[2025-03-19 08:49] LABS: Basophils # (Auto) 0.0 Thou/mm3 (0.0-0.2); Basophils % (Auto) 0 % (0-2.5); Eosinophils # (Auto) 0.1 Thou/mm3 (0.0-0.5); Eosinophils % (Auto) 1 % (0-10); Hematocrit 38.7 % (36.0-46.0); Hemoglobin 13.1 g/dL (12.0-16.0); Immature Granulocytes Auto 0.01 Thou/mm3 (0.00-0.00); Lymphocytes # (Auto) 2.2 Thou/mm3 (1.0-4.8); Lymphocytes % (Auto) 36 % (10-50); Mean Corpuscular HGB Conc 33.9 g/dl (31.0-37.0); Mean Corpuscular Hemoglobin 27.6 pg (25.0-35.0); Mean Corpuscular Volume 82 fL (80-100); Monocytes # (Auto) 0.5 Thou/mm3 (0.0-0.8); Monocytes % (Auto) 8 % (0-12); Neutrophils # (Auto) 3.4 Thou/mm3 (1.8-7.7); Neutrophils % (Auto) 55 % (37-80); Nucleated Red Blood Cell # 0.00 Thou/mm3 (0.00-0.00); Nucleated Red Blood Cell % 0 /100 WBC (0); Platelet Count 291 Thou/mm3 (140-440); RDW Standard Deviation 36.7 fL (36.4-46.3); Red Blood Count 4.74 Miln/mm3 (4.00-5.20); White Blood Count 6.1 Thou/mm3 (3.6-11.0)
[2025-03-19 09:17] LABS: Alanine Aminotransferase 14 U/L (10-49); Albumin, Serum 4.9 gm/dL (3.5-5.0); Albumin/Globulin Ratio 3.1 (1.2-2.2); Alkaline Phosphatase 63 U/L (46-116); Anion Gap 10 (7-16); Aspartate Amino Transferase 19 U/L (0-34); BUN/Creatinine Ratio 15 Ratio (12-20); Bilirubin,Total 1.7 mg/dL (0.3-1.2); Blood Urea Nitrogen 12 mg/dL (9-23); Calcium 9.4 mg/dL (8.3-10.6); Calcium (Corrected) 9.4 mg/dL (8.5-10.1); Carbon Dioxide 25.7 mMol/L (20.0-31.0); Chloride 109 mMol/L (98-107); Creatinine (Component) 0.8 mg/dL (0.6-1.3); Globulin 1.6 gm/dL (2.3-3.5); Glucose 85 mg/dL (74-106); Osmolality,Calculated 287 (275-295); Potassium 4.0 mMol/L (3.4-5.1); Sodium 145 mMol/L (136-145); Total Protein 6.5 gm/dL (5.7-8.2); eGFR > 60 See Note
== END | disposition home or self-care (01) ==
LOC: SLAB 08:22
PROVIDERS: PCP Internal Medicine Hematology & Oncology; Referring Provider Internal Medicine Hematology & Oncology; Visit Provider Internal Medicine Hematology & Oncology
DX: C7A.1 Malignant poorly differentiated neuroendocrine tumors (principal)
CPT/HCPCS: 36415; 80053; 85025

== ENCOUNTER 2025-03-21 10:12 | Outpatient (RCR) | payer OTHER, SELFPAY ==
--- NOTE | 2025-03-05 15:29 | CTCCONSULT_ITS ---
Patient: NICOLAS CASTILLO : 1980 MR#: [id number] Page 3 of 5 CONSULTATION NOTE DATE OF CONSULTATION: 03/05/2025 NAME: NICOLAS CASTILLO ACCOUNT: [id number] : 1980 AGE: 44 REFERRING PHYSICIAN: Arie Romo MD PRIMARY PHYSICIAN: Physician No Primary/Family MD REASON FOR VISIT: New diagnosis of neuroendocrine tumor ONCOLOGY HISTORY: DIAGNOSIS: Neuroendocrine tumor metastatic low-grade DATE OF DIAGNOSIS: 03/03/2025 STAGE/TNM: Likely stage IV primary unknown TREATMENT HISTORY: Care?Plan Start?Date Cycle Day Intent HISTORY OF PRESENT ILLNESS: 44-year-old female was seen in the emergency room after patient was complaining of nausea and vomiting. Patient had symptoms for about 2 to 3 days before she was seen in the emergency room. Imaging done during the emergency visit showed no small bowel obstruction but patient was found to have a lot of fluid in the colon. Patient was also noted to have multiple lesions in the liver which biopsy proved to be an NET. . Patient was also noted to have 4 mm nodule in the breas which is yet not investigated. Thistory of sarcoma in the family No other personal history of cancer 02/22/2025 OTHER MEDICAL HISTORY/CONDITIONS: FAMILY HISTORY: SOCIAL HISTORY: MEDICAL INTERN HISTORY: MEDICATIONS: 1. None Medications Never Reconciled ALLERGIES: REVIEW OF SYSTEMS: A complete 14-point review of systems was performed and is negative except as noted in interval history. PHYSICAL EXAMINATION: VITAL SIGNS: PAIN: 0 - No pain ECOG Performance Status: 0 - Asymptomatic and fully active GENERAL APPEARANCE: Appears well, in no apparent distress, appropriately interactive. HEENT: Normocephalic, no temporal wasting, normal conjunctiva, no scleral icterus, normal hearing, lips without lesions, neck normal range of motion. CARDIOVASCULAR: Not assessed. PULMONARY: Normal respiratory effort, no respiratory distress or use of accessory muscles, speaking in full sentences, no tachypnea. EXTREMITIES: No pedal edema or cyanosis. SKIN: Normal skin appearance. NEUROLOGIC: Alert and oriented x4. PSHYCHIATRIC: Appropriate affect, mood normal, behavior normal, intact thought and speech. 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 Will send to [facility] for second opinion and management. ORDERS: Order # Description [id number] Chromogranin A [id number] Refer To: RETURN TO CLINIC: I reviewed the diagnosis, prognosis, and recommended treatment/procedure options with the patient (and/or their legal professional healthcare representative), including the potential benefits, risks, side effects and alternative therapies. We also discussed the option of no treatment and the possibility of clinical trial participation, if applicable. All questions were addressed, and they demonstrated understanding. They provided informed consent to proceed with the proposed plan of care. BILLING AND COMPLIANCE: I reviewed external records from providers outside my specialty as summarized above. I spent a total of 50 minutes on this patient?s care on the day of their visit excluding time spent related to any billed procedures. This time includes time spent with the patient as well as time spent documenting in the medical record, reviewing patients records and tests, obtaining history, placing orders, communicating with other healthcare professionals, counseling the patient, family or caregiver, and/or care coordination for the diagnoses above. Electronically Signed by: Arie Romo MD T: 3:26 PM CC: PCP: No Primary/family, Physician Referring: Arie Romo This document was completed utilizing speech recognition software. Grammatical errors, random word insertions, pronoun errors, and incomplete sentences are an occasional consequence of this system due to software limitations, ambient noise, and hardware issues. Any formal questions or concerns about the content, text or information contained within the body of this dictation should be directly addressed to the provider for clarification.
== END 2025-03-21 23:59 | disposition home or self-care (01) ==
LOC: SCTC 10:12
PROVIDERS: Referring Provider Internal Medicine Hematology & Oncology; Visit Provider Internal Medicine Hematology & Oncology
DX: C7A.8 Other malignant neuroendocrine tumors (principal)
CPT/HCPCS: 96372; 99213; J2353; G0463

== ENCOUNTER 2025-04-08 09:56 | Outpatient (RCR) | payer OTHER, SELFPAY ==
[2025-04-04 08:55] LABS: Misc Send Out* See Sep Rpt
[2025-04-04 09:00] LABS: Basophils # (Auto) 0.0 Thou/mm3 (0.0-0.2); Basophils % (Auto) 1 % (0-2.5); Eosinophils # (Auto) 0.1 Thou/mm3 (0.0-0.5); Eosinophils % (Auto) 1 % (0-10); Hematocrit 37.7 % (36.0-46.0); Hemoglobin 12.7 g/dL (12.0-16.0); Immature Granulocytes Auto 0.01 Thou/mm3 (0.00-0.00); Lymphocytes # (Auto) 2.1 Thou/mm3 (1.0-4.8); Lymphocytes % (Auto) 35 % (10-50); Mean Corpuscular HGB Conc 33.7 g/dl (31.0-37.0); Mean Corpuscular Hemoglobin 27.1 pg (25.0-35.0); Mean Corpuscular Volume 80 fL (80-100); Monocytes # (Auto) 0.4 Thou/mm3 (0.0-0.8); Monocytes % (Auto) 7 % (0-12); Neutrophils # (Auto) 3.4 Thou/mm3 (1.8-7.7); Neutrophils % (Auto) 57 % (37-80); Nucleated Red Blood Cell # 0.00 Thou/mm3 (0.00-0.00); Nucleated Red Blood Cell % 0 /100 WBC (0); Platelet Count 265 Thou/mm3 (140-440); RDW Standard Deviation 36.1 fL (36.4-46.3); Red Blood Count 4.69 Miln/mm3 (4.00-5.20); White Blood Count 6.1 Thou/mm3 (3.6-11.0)
[2025-04-04 09:17] LABS: Alanine Aminotransferase 47 U/L (10-49); Albumin, Serum 4.7 gm/dL (3.5-5.0); Albumin/Globulin Ratio 2.8 (1.2-2.2); Alkaline Phosphatase 73 U/L (46-116); Anion Gap 10 (7-16); Aspartate Amino Transferase 27 U/L (0-34); BUN/Creatinine Ratio 13 Ratio (12-20); Bilirubin,Total 1.4 mg/dL (0.3-1.2); Blood Urea Nitrogen 9 mg/dL (9-23); Calcium 9.1 mg/dL (8.3-10.6); Calcium (Corrected) 9.1 mg/dL (8.5-10.1); Carbon Dioxide 24.1 mMol/L (20.0-31.0); Chloride 111 mMol/L (98-107); Creatinine (Component) 0.7 mg/dL (0.6-1.3); Globulin 1.7 gm/dL (2.3-3.5); Glucose 119 mg/dL (74-106); Osmolality,Calculated 288 (275-295); Potassium 4.1 mMol/L (3.4-5.1); Sodium 145 mMol/L (136-145); Total Protein 6.4 gm/dL (5.7-8.2); eGFR > 60 See Note
[2025-04-08 13:24] LABS: Uric Acid 4.4 mg/dL (3.1-7.8)
[2025-04-08 13:28] LABS: Free T4 (Free Thyroxine) 1.25 ng/dL (0.89-1.76); LDH (Lactate Dehydrogenase) 268 U/L (120-246); Thyroid Stimulating Hormone 1.49 uIU/mL (0.55-4.78)
[2025-04-08 13:30] LABS: Folate 14.01 ng/mL (>5.38); Vitamin B12 514 pg/mL (211-911)
[2025-04-08 14:07] LABS: Ferritin 9 ng/mL (7.3-270.7); Iron 45 mcg/dL (50-170); Percent Iron Saturation 12 % (20-55); Total Iron Binding Capacity 357 mcg/dL (250-425); Unsaturated Iron Binding 312 (225-295)
--- NOTE | 2025-04-20 22:38 | CTCFLWUP_ITS ---
Patient: NICOLAS CASTILLO : 1980 Page 4 of 6 FOLLOW UP NOTE DATE OF SERVICE: 03/24/2025 NAME: NICOLAS CASTILLO ACCOUNT: [id number] : 1980 AGE: 44 INTERVAL HISTORY: Patient is having hot flashes and diarrhea which is slightly better with sandostatin. Have dizziness ONCOLOGY HISTORY: DIAGNOSIS: Neuroendocrine tumor metastatic low-grade DATE OF DIAGNOSIS: 03/03/2025 STAGE/TNM: Likely stage IV primary unknown TREATMENT HISTORY: Care?Plan Start?Date Cycle Day Intent Sandostatin?LAR?30?mg 03/10/2025 1 28 Maintenance VENOfer?200mg?IV?wkly?for?10?weeks 04/09/2025 1 70 Palliative HISTORY OF PRESENT ILLNESS: 44-year-old female was seen in the emergency room after patient was complaining of nausea and vomiting. Patient had symptoms for about 2 to 3 days before she was seen in the emergency room. Imaging done during the emergency visit showed no small bowel obstruction but patient was found to have a lot of fluid in the colon. Patient was also noted to have multiple lesions in the liver which biopsy proved to be an NET. . Patient was also noted to have 4 mm nodule in the breas which is yet not investigated. 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 Tobacco?Use:?Denies ETOH?Use:?Socially?-?Rarely Drug?Note:?Denies Social History Note:?Lives with and 2 daughters STILL TENDER HISTORY: Menarche?-?Age:?11 :?2 Live?Births:?2 Age?1st?:?29 MEDICATIONS: 1. Aller-Basil - 50 mcg/actuation 1 spray Daily 2. ondansetron HCl - 8 mg 1 tab every 8hrs prn nausea 3. Tums - 320 mg calcium (750 mg) tab As directed Medications Last Reconciled by Kayla Lowe RN on 03/12/2025 (Reconcile on Approval: ?) ALLERGIES: No Known Drug Allergies REVIEW OF SYSTEMS: A complete 14-point review of systems was performed and is negative except as noted in interval history. PHYSICAL EXAMINATION: VITAL SIGNS: PAIN: 0 - No pain ECOG Performance Status: 1 - Symptomatic; ambulatory; restricted in strenuous activity GENERAL APPEARANCE: Appears well, in no apparent distress, appropriately interactive. HEENT: Normocephalic, no temporal wasting, normal conjunctiva, no scleral icterus, normal hearing, lips without lesions, neck normal range of motion. CARDIOVASCULAR: Not assessed. PULMONARY: Normal respiratory effort, no respiratory distress or use of accessory muscles, speaking in full sentences, no tachypnea. EXTREMITIES: No pedal edema or cyanosis. SKIN: Normal skin appearance. NEUROLOGIC: Alert and oriented x4. PSHYCHIATRIC: Appropriate affect, mood normal, behavior normal, intact thought and speech. LABORATORY DATA: I have personally reviewed and interpreted each of the patient?s relevant lab tests, abnormal findings are below: Date 04/04/25 04/08/25 ??WHITE?BLOOD?COUNT?(Thou/mm3) 6.1 ? ??RED?BLOOD?COUNT?(Miln/mm3) 4.69 ? ??HEMOGLOBIN?(gm/dl) 12.7 ? ??HEMATOCRIT?(%) 37.7 ? ??PLATELET?COUNT?(Thou/mm3) 265 ? ??NEUTROPHILS?%,?AUTO?(%) 57 ? ??LYMPH?%,?AUTO?(%) 35 ? ??NEUTROPHILS,?AUTO?(Thou/mm3) 3.4 ? ??GLUCOSE,RANDOM?(mg/dL) 119?H ? ??BLOOD?UREA?NITROGEN?(mg/dL) 9 ? ??CREATININE?(mg/dL) 0.70 ? ??SODIUM?(mmol/L) 145 ? ??POTASSIUM?(mmol/L) 4.1 ? ??CHLORIDE?(mmol/L) 111?H ? ??CrCl?(CandG)?(ml/min) 122.09 ? ??AST/SGOT?(Unit/L) 27 ? ??ALT/SGPT?(Unit/L) 47 ? ??ALKALINE?PHOSPHATASE?(Unit/L) 73 ? ??BILIRUBIN,?TOTAL?(mg/dL) 1.4?H ? ??PROTEIN?TOTAL?(gm/dl) 6.4 ? ??ALBUMIN,?SERUM?(gm/dl) 4.7 ? ??GLOBULIN?(gm/dl) 1.7?L ? ??ALBUMIN/GLOBULIN?RATIO 2.8?H ? ??CALCIUM,?SERUM?(mg/dL) 9.1 ? ??CALCIUM?SERUM?(CORRECTED)?(mg/dL) 9.1 ? ??LDH,?TOTAL?(Unit/L) ? 268?H ??TOTAL?IRON?BINDING?CAP?(S*)?(mcg/dL) ? 357 ??UNBOUND?IBC?(mcg/dL) ? 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 Hold on colonoscopy Evaluation by cardiology with possible transesophageal ECHO if cont to be bradycardic and holtor monitor for 30 days PET reviewed and have lesion in ileum 5-HIAA and serum chromogranin levels are elevated Follow at [facility] for surgical resection Will ceck iron and vitamins for possible causes of fatigue ORDERS: Order # Description [id number] Urine 5 HIAA [id number] Chromogranin A [id number] Comprehensive Metabolic Panel - 12 + CBC with Auto Diff + MD Follow Up 4 Week [id number] CBC with Auto Diff + Comprehensive Metabolic Panel - 12 + [id number] Urine 5 HIAA [id number] Uric Acid, Serum [id number] Lactate Dehydrogenase (LDH) + Iron Panel + Ferritin + Vitamin B-12 + Folic Acid; Serum [id number] CBC + Comprehensive Metabolic Panel [id number] Lab Appointment RETURN TO CLINIC: I reviewed the diagnosis, prognosis, and recommended treatment/procedure options with the patient (and/or their legal software sales representative), including the potential benefits, risks, side effects and alternative therapies. We also discussed the option of no treatment and the possibility of clinical trial participation, if applicable. All questions were addressed, and they demonstrated understanding. They provided informed consent to proceed with the proposed plan of care. BILLING AND COMPLIANCE: I reviewed external records from providers outside my specialty as summarized above. I spent a total of 50 minutes on this patient?s care on the day of their visit excluding time spent related to any billed procedures. This time includes time spent with the patient as well as time spent documenting in the medical record, reviewing patients records and tests, obtaining history, placing orders, communicating with other healthcare professionals, counseling the patient, family or caregiver, and/or care coordination for the diagnoses above. Electronically Signed by: {Object.Sanct_ID*PnP.NameFL@M}, {Object.Sanct_ID*PnP.Suffix@U} D: {Object.Sanct_Date} T: {Object.Sanct_Time} CC: PCP: Alexandra Burton Referring: Arie Romo This document was completed utilizing speech recognition software. Grammatical errors, random word insertions, pronoun errors, and incomplete sentences are an occasional consequence of this system due to software limitations, ambient noise, and hardware issues. Any formal questions or concerns about the content, text or information contained within the body of this dictation should be directly addressed to the provider for clarification.
== END 2025-04-20 23:59 | disposition home or self-care (01) ==
LOC: SCTC 09:56
PROVIDERS: PCP Physician Assistant; Referring Provider Physician Assistant; Visit Provider Internal Medicine Hematology & Oncology
DX: C7B.8 Other secondary neuroendocrine tumors (principal)
CPT/HCPCS: 36415; 36591; 80053; 82607; 82728; 82746; 83540; 83550; 83615; 84439; 84443; 84550; 85025; 86316; 96360; 99212; J7030; G0463

== ENCOUNTER → 2025-04-08 | Outpatient (CLI) | payer OTHER, SELFPAY ==
[2025-04-08 08:34] LABS: Misc Send Out* See Sep Rpt
== END | disposition home or self-care (01) ==
LOC: SLAB 08:23
PROVIDERS: PCP Internal Medicine Hematology & Oncology; Referring Provider Internal Medicine Hematology & Oncology; Visit Provider Internal Medicine Hematology & Oncology
DX: C7A.1 Malignant poorly differentiated neuroendocrine tumors (principal)
CPT/HCPCS: 83497

== ENCOUNTER → 2025-05-05 | Outpatient (CLI) | payer OTHER, SELFPAY ==
[2025-05-05 09:07] LABS: Misc Send Out* See Sep Rpt
[2025-05-05 09:07] LABS: Misc Send Out* See Sep Rpt
== END | disposition home or self-care (01) ==
PROVIDERS: PCP Internal Medicine Hematology & Oncology; Referring Provider Internal Medicine Hematology & Oncology; Visit Provider Internal Medicine Hematology & Oncology
DX: C7A.1 Malignant poorly differentiated neuroendocrine tumors (principal)
CPT/HCPCS: 83497; 86316